=== PATIENT | male | born 1960 | race Caucasian/White ===

== ENCOUNTER → 2016-05-22 | Outpatient (REF) | payer OTHER ==
[2016-05-23 14:00] LABS: PERCENT SATURATION 24.4 % (19.7-37.4)
== END ==
LOC: M LAB REF 13:26
PROVIDERS: ATTEND Family Medicine
DX: D64.9 Anemia, unspecified (principal)

== ENCOUNTER → 2016-11-26 | Outpatient (REF) | payer OTHER | LOC: M LAB REF 09:49 | PROVIDERS: ATTEND Family Medicine | DX: C91.10 Chronic lymphocytic leukemia of B-cell type not having achieved remission (principal) ==

== ENCOUNTER → 2016-11-27 | Outpatient (REF) | payer OTHER ==
[2016-11-27 13:59] LABS: MICROSCOPIC INDICATED? MAN YES (NO); RBC, URINE NONE SEEN /hpf (0-3); WBC, URINE NONE SEEN /hpf (0-3)
[2016-11-27 14:00] LABS: BACTERIA, URINE NONE SEEN; HYALINE CAST, URINE NONE SEEN /lpf (0-1); MICROSCOPIC EXAM PERFORMED; SQUAMOUS EPITHELIAL CELL URINE NONE SEEN /hpf (SMALL AMT)
== END ==
LOC: M LAB REF 12:29
PROVIDERS: ATTEND Family Medicine
DX: N17.9 Acute kidney failure, unspecified (principal); I10 Essential (primary) hypertension

== ENCOUNTER → 2016-11-29 | Outpatient (CLI) | payer OTHER ==
--- NOTE | 2016-11-29 08:12 | REP ---
Renal ultrasound: The kidneys are normal size. Right kidney measures 11.1 x 5.6 x 4.9 cm. Left kidney measures 11.4 by 4.9 x 4.9 cm. There is no hydronephrosis on the right on the left. There are no renal calculi, masses or cyst except for a 9.6 mm left renal mid pole cortical cyst. Impression: Small left renal cyst, otherwise negative bilateral renal ultrasound. Bladder ultrasound: The bladder is not distended, containing only 97 ml fluid and cannot be further assessed by ultrasound at this time. Signed by Chirag Edward MD 11/29/2016 08:03 A
== END ==
LOC: M RAD 06:07
PROVIDERS: ATTEND Family Medicine
DX: N17.9 Acute kidney failure, unspecified (principal); N28.1 Cyst of kidney, acquired

== ENCOUNTER 2018-02-06 14:04 | Emergency (ER) | payer OTHER ==
[2018-02-06] MEDS: DERMABOND TOPICAL SKIN ADHESIVE TOP (15:58)
[2018-02-06] MEDS: ADACEL/BOOSTRIX VACCINE (DIPHTH/PERTUSS/ACELL/TETANUS)0.5ML SYR (90715) IM (16:22)
== END 2018-02-06 16:41 | disposition home or self-care (01) ==
LOC: M ED 14:04
DX: S61.211A Laceration without foreign body of left index finger without damage to nail, initial encounter (principal); W26.0XXA Contact with knife, initial encounter; Y92.89 Other specified places as the place of occurrence of the external cause; Y99.0 Civilian activity done for income or pay; I10 Essential (primary) hypertension; K21.9 Gastro-esophageal reflux disease without esophagitis; Z79.899 Other long term (current) drug therapy; Z88.1 Allergy status to other antibiotic agents; Z88.8 Allergy status to other drugs, medicaments and biological substances
CPT/HCPCS: 90715

== ENCOUNTER → 2018-05-12 | Outpatient (CLI) | payer OTHER ==
[~2018-05-12] MED LIST: ALPR2TAB3 PO; AMLO5TAB6 PO; LOSA100T50 PO; PRED10TA2 PO; PRED20TA PO; PRED50TA PO; PROTPAK PO
--- NOTE | 2018-05-13 08:26 | REP ---
Clinical: History of chronic lymphocytic leukemia for restaging. Technique: Axial noncontrast images from the thoracic inlet to the upper abdomen with coronal and sagittal re-formations. Comparison: 08/23/2014. Findings: Lung asher are relatively well aerated and demonstrate chronic age-related interstitial changes. Very subtle small scattered alveolar/ground-glass type opacities are identified involving the right lung and to a lesser extent the left base which are nonspecific in appearance. Very small associated noncalcified nodular densities measuring up to 3 mm are noted and while some of these appear relatively new as compared to 2014, their appearance is nonspecific. No focal area of consolidation. No effusion or pneumothorax. Tracheobronchial tree is patent. No obvious significant adenopathy. Lymph nodes within the mediastinum measure up to approximately 13 mm. Thoracic aorta, pulmonary vasculature and heart/pericardium appear normal. Musculoskeletal structures are intact without focal osseous abnormality. Impression: 1. Very subtle small scattered alveolar/ground-glass opacities primarily noted in the right hemithorax with few small noncalcified nodules up to 3 mm are nonspecific. No significant consolidation or mass lesion. No adenopathy. Clinical correlation is recommended and 6 - 9 month follow-up may be of value. Electronically Signed by Fred Borden MD 05/13/2018 08:18 A
--- NOTE | 2018-05-13 08:36 | REP ---
Clinical: History of chronic lymphocytic leukemia for restaging. Technique: Axial noncontrast images from the lung bases to the pubic symphysis with coronal and sagittal re-formations. Comparison: 08/23/2014. Findings: Moderately prominent intraperitoneal/mesenteric and retroperitoneal adenopathy is appreciated and there is slightly increased when compared to prior examination. Specifically, current examination demonstrates few mesenteric lymph nodes which measure up to 2.3 cm maximal diameter previously measuring up to 1.3 cm maximal diameter along with para-aortic retroperitoneal adenopathy measuring up to 2.9 cm maximal diameter which previously measured up to 1.4 cm maximal diameter. Liver, spleen, pancreas, gallbladder, bilateral adrenal glands and kidneys are relatively normal / stable for noncontrast evaluation. 1 mm nonobstructing right renal calculus identified. The enteric system is without obstruction or acute inflammatory process. Pelvis demonstrates normal bladder along with moderately prominent prostate gland. No ascites. No free air. Abdominal aorta without aneurysm. Osseous structures demonstrate age-related changes without focal osseous abnormality. Please refer to chest CT for lung base findings. Impression: Moderately prominent increased intraperitoneal and retroperitoneal adenopathy as described above when compared to prior examination of 2014. Electronically Signed by Fred Borden MD 05/13/2018 08:27 A
== END ==
LOC: M RAD 08:23
PROVIDERS: ATTEND Internal Medicine Hematology & Oncology
DX: C91.10 Chronic lymphocytic leukemia of B-cell type not having achieved remission (principal); N20.0 Calculus of kidney

== ENCOUNTER → 2018-07-06 | Outpatient (REF) | payer BC ==
[2018-07-07 08:15] LABS: LDL DIRECT 74 mg/dL (0-99)
== END ==
LOC: M LAB REF 13:07
PROVIDERS: ATTEND Family Medicine
DX: E78.5 Hyperlipidemia, unspecified (principal)

== ENCOUNTER → 2019-05-17 | Outpatient (REF) | payer BC ==
[~2019-05-17] MED LIST changes: +VALA500T5 PO
[2019-05-17 12:51] LABS: PERCENT SATURATION 30.7 % (19.7-50.0)
== END ==
LOC: M LAB REF 12:01
PROVIDERS: ATTEND Family Medicine
DX: D64.9 Anemia, unspecified (principal); D69.6 Thrombocytopenia, unspecified

== ENCOUNTER → 2019-05-31 | Outpatient (CLI) | payer BC | LOC: M LABSMTC 13:39 | PROVIDERS: ATTEND Family Medicine | DX: Z11.59 Encounter for screening for other viral diseases (principal); Z20.828 Contact with and (suspected) exposure to other viral communicable diseases ==

== ENCOUNTER → 2019-09-09 | Outpatient (CLI) | payer BC ==
[~2019-09-09] MED LIST changes: +ALLE180T33 PO; +AMLO1TAB24 PO; -AMLO5TAB6 PO; +AZEL1SPR3 NARES; +FLON1SPR NARES; +FOLI1TAB11 PO; +IMBR1CAP PO
== END ==
LOC: M LABSMTC 13:46
PROVIDERS: ATTEND Family Medicine
DX: Z11.59 Encounter for screening for other viral diseases (principal)
CPT/HCPCS: C9803; U0003

== ENCOUNTER → 2019-09-13 | Outpatient (CLI) | payer BC ==
--- NOTE | 2019-09-13 10:19 | REP ---
Clinical: Cough. Technique: PA and lateral. Comparison: 09/06/2014. Findings: Mediastinum and cardiac silhouette are normal. Lung asher demonstrate chronic-appearing interstitial changes. While no focal consolidation, effusion, or pneumothorax is appreciated, subtle right hilar adenopathy cannot be excluded and should be correlated clinically. Skeletal structures are intact. Impression: Diffuse mild chronic-appearing interstitial changes. Cannot exclude adenopathy. No focal consolidation or effusion. Electronically Signed by Fred Borden MD 09/13/2019 10:11 A
== END ==
LOC: M WUC 09:58
PROVIDERS: ATTEND Family Medicine
DX: R91.8 Other nonspecific abnormal finding of lung field (principal)

== ENCOUNTER → 2019-11-04 | Outpatient (CLI) | payer BC ==
[~2019-11-04] MED LIST changes: +GASTROGRAFIN SOLUTION 30ML (Q9963) As Ordered ONE; +ISOVUE-370 76% 100ML VIAL As Ordered ONE
--- NOTE | 2019-11-04 16:08 | REPVR ---
PROCEDURE INFORMATION: Exam: CT Neck With Contrast Exam date and time: 11/04/2019 3:41 PM Age: 59 years old Clinical indication: Condition or disease; Cancer; Other: Nhl; Mass, lump, or swelling in neck; Additional info: Non hogkins lymphoma, enlarged lymphnode on neck TECHNIQUE: Imaging protocol: Computed tomography images of the neck with intravenous contrast. Radiation optimization: All CT scans at this facility use at least one of these dose optimization techniques: automated exposure control; mA and/or kV adjustment per patient size (includes targeted exams where dose is matched to clinical indication); or iterative reconstruction. Contrast material: ISOVUE 370; Contrast volume: 100 ml; Contrast route: INTRAVENOUS (IV); COMPARISON: No relevant prior studies available. FINDINGS: Mastoid air cells: A small amount of fluid is noted in the left mastoid air cells. Nasopharynx: Unremarkable. Oropharynx: Unremarkable. No significant tonsillar enlargement. Hypopharynx: Unremarkable. Larynx: Unremarkable. Normal epiglottis. Retropharyngeal space: Unremarkable. Submandibular/Parotid glands: Normal. Glands are normal in size. Thyroid: Normal. No enlarged or calcified nodules. Lymph nodes: There is extensive cervical adenopathy. There are level 1, submandibular, lymph nodes measuring up to 13 mm in short axis on the right and 10 mm in short axis on the left. There are additional smaller level 1 lymph nodes. There are multiple bilateral jugular lymph nodes. Level 2 lymph nodes measure up to 15 mm in short axis. These are numerous lymph nodes. Level 3 jugular lymph nodes measure up to 15 mm in short axis. Level 3 jugular lymph nodes measure up to 13 mm in short axis. Posterior cervical lymph nodes measure up to 12 mm in short axis. There also intraparotid lymph nodes bilaterally measuring up to 11 mm in short axis. There are suboccipital posterior lymph nodes measuring up to 11 mm. Trachea: Visualized trachea is unremarkable. Lungs: Unremarkable as visualized. Bones/joints: There is cervical spondylosis and disc space narrowing. No focal osseous lesion. Soft tissues: On the most superior 2 images calcification is noted posteriorly within the retina or sclera. This is only partly visible. This has a wide differential diagnosis of degenerative and metabolic etiologies. This is not likely to represent lymphoma. IMPRESSION: Extensive bilateral cervical adenopathy highly consistent with the stated clinical diagnosis of lymphoma. Electronically signed by: Yung Helton On 11/04/2019 16:08:50 PM
--- NOTE | 2019-11-25 11:13 | REP ---
CONTRAST ENHANCED CT ABDOMEN AND PELVIS CLINICAL: History of non-Hodgkin's lymphoma with enlarging neck nodes. TECHNIQUE: Axial contrast enhancement images from the lung bases to the pubic symphysis with coronal and sagittal reformations using oral (per protocol) and 100 mL Isovue-370 intravenous contrast material. Coronal and sagittal reformations obtained. COMPARISON: 05/12/2018. FINDINGS: The visualized lung bases demonstrate extensive bilateral hilar and lower mediastinal adenopathy. The lung asher themselves demonstrate chronic fibrotic interstitial changes and bronchiectasis. Visualized portions of the heart and pericardium are relatively normal. The abdomen demonstrates extensive severe marked adenopathy throughout the abdomen and pelvis including large conglomerate encasing adenopathy throughout the retroperitoneum extending from approximately the level of the SMA inferiorly to the level of the distal aorta with conglomerate lymph nodes measuring roughly 14 x 7 cm transverse and AP diameter. Enlarged lymph nodes throughout the mesentery are also identified. No ascites. No free air. The liver demonstrates normal echotexture without focal lesion. The spleen is grossly unremarkable. Pancreas, gallbladder, bilateral adrenal glands are normal. The kidneys demonstrate normal enhancement with small scattered subcentimeter hypodensities consistent with cysts and no perinephric stranding or hydronephrosis. The enteric system is without obstruction or acute inflammatory process. Normal terminal ileum and appendix are identified in the right lower quadrant. Pelvis demonstrates normal bladder and age appropriate prostate/seminal vesicles. Groin and inguinal lymph nodes are also identified measuring up to 2.5 cm in diameter. Abdominal aorta without aneurysm or dissection. Musculoskeletal structures are intact. IMPRESSION: * Marked extensive diffuse mesenteric and retroperitoneal adenopathy, as well as pelvic and groin nodes. Findings are significantly increased from prior examination. * Bilateral hilar and lower mediastinal lymph nodes in the visualized lung bases along with chronic interstitial changes/fibrosis and bronchiectasis. MTDD
== END ==
LOC: M RAD 13:46
PROVIDERS: ATTEND Specialist
DX: R59.1 Generalized enlarged lymph nodes (principal); C85.10 Unspecified B-cell lymphoma, unspecified site
CPT/HCPCS: 70491; 74177; Q9963; Q9967

== ENCOUNTER → 2020-01-17 | Outpatient (REF) | payer BC ==
[~2020-01-17] MED LIST changes: -GASTROGRAFIN SOLUTION 30ML (Q9963) As Ordered ONE; -ISOVUE-370 76% 100ML VIAL As Ordered ONE
[2020-01-17 18:56] LABS: ATYPICAL LYMPH 5 % (0-5); EOSINOPHILS 1 % (0-3); LYMPHOCYTES 69 % (16-44); MONOCYTES 4 % (0-5); NEUTROPHILS 20 % (28-66)
[2020-01-17 18:57] LABS: OVALOCYTES 1+
[2020-01-17 18:58] LABS: ANISOCYTOSIS 1+; HYPOCHROMASIA 1+
[2020-01-17 19:00] LABS: PLATELET ESTIMATE NORMAL (NORMAL)
== END ==
LOC: M LAB REF 16:19
PROVIDERS: ATTEND Family Medicine
DX: C91.10 Chronic lymphocytic leukemia of B-cell type not having achieved remission (principal)

== ENCOUNTER → 2020-02-01 | Outpatient (CLI) | payer SELFPAY | LOC: M LABSMTC 12:23 | PROVIDERS: ATTEND Pediatrics | DX: Z11.59 Encounter for screening for other viral diseases (principal) ==

== ENCOUNTER → 2020-08-04 | Outpatient (CLI) | payer BC ==
[~2020-08-04] MED LIST changes: +LOSA50TA88 PO
== END ==
LOC: M LABSMTC 10:01
PROVIDERS: ATTEND Anesthesiology
DX: Z01.812 Encounter for preprocedural laboratory examination (principal); Z20.822 Contact with and (suspected) exposure to COVID-19

== ENCOUNTER → 2022-02-01 | Outpatient (REF) | payer OTHER ==
[~2022-02-01] MED LIST changes: +CALC500C16 PO; +CETI10CA13 PO; +LEVO25TA5 PO; +LOSA100T45 PO; -LOSA100T50 PO; +LOSA50TA28 PO; -LOSA50TA88 PO
[2022-02-01 14:31] LABS: HEMATOCRIT 40.1 % (42.0-52.0); HEMOGLOBIN 12.3 g/dl (13.5-17.5); MEAN CORPUSCULAR HGB CONC 30.7 g/dl (32.0-36.5); MEAN CORPUSCULAR VOLUME 68.5 fl (80.0-96.0); PLATELET COUNT, AUTOMATED 129 10^3/uL (150-450); RED BLOOD COUNT 5.85 10^6/uL (4.30-6.10); WHITE BLOOD COUNT 6.7 10^3/uL (4.0-10.0)
[2022-02-01 14:55] LABS: ALBUMIN 3.9 G/DL (3.2-5.2); ALKALINE PHOSPHATASE 67 U/L (46-116); ALT/SGPT 15 U/L (7.0-40); AST/SGOT 15 U/L (<34); BILIRUBIN,TOTAL 0.8 MG/DL (0.3-1.2); BLOOD UREA NITROGEN 19 MG/DL (9-23); CALCIUM LEVEL 8.3 MG/DL (8.3-10.6); CARBON DIOXIDE LEVEL 22 MMOL/L (20-31); CHLORIDE LEVEL 108 MMOL/L (98-107); CHOLESTEROL LEVEL 160 MG/DL (<200); CHOLESTEROL RISK RATIO 5.86 (<5); CREATININE FOR GFR 1.28 MG/DL (0.70-1.30); GLOMERULAR FILTRATION RATE > 60.0 (>49); GLUCOSE, FASTING 86 MG/DL (74-106); HDL CHOLESTEROL 27.3 MG/DL (>40); LDL CHOLESTEROL 92.1 MG/DL (<100); NON-HDL-C 133 MG/DL; POTASSIUM SERUM 4.4 MMOL/L (3.5-5.1); SODIUM LEVEL 140 MMOL/L (136-145); TOTAL PROTEIN 6.5 G/DL (5.7-8.2); TRIGLYCERIDES LEVEL 203 MG/DL (<150)
[2022-02-01 14:57] LABS: ANISOCYTOSIS 1+; ATYPICAL LYMPH 5 % (0-5); BASOPHILS 1 % (0-1); FREE T4 1.44 NG/DL (0.89-1.76); HYPOCHROMASIA 1+; LYMPHOCYTES 45 % (16-44); MONOCYTES 5 % (0-5); NEUTROPHILS 44 % (28-66); PLATELET ESTIMATE DECREASED (NORMAL); THYROID STIMULATING HORMONE 3.569 uIU/ML (0.55-4.78)
[2022-02-01 14:58] LABS: MICROCYTOSIS 1+
== END ==
LOC: M LAB REF 14:06
PROVIDERS: ATTEND Family Medicine
DX: N18.30 Chronic kidney disease, stage 3 unspecified (principal); C91.10 Chronic lymphocytic leukemia of B-cell type not having achieved remission; E07.9 Disorder of thyroid, unspecified

== ENCOUNTER → 2022-06-03 | Outpatient (CLI) | payer OTHER | LOC: M WUC 08:23 | PROVIDERS: ATTEND Family Medicine | DX: R05.3 Chronic cough (principal); J84.10 Pulmonary fibrosis, unspecified ==

== ENCOUNTER → 2022-07-04 | Outpatient (REF) | payer OTHER ==
[~2022-07-04] MED LIST changes: -LOSA100T45 PO; +LOSA100T46 PO
== END ==
LOC: M LAB REF 12:42
PROVIDERS: ATTEND Internal Medicine Critical Care Medicine
DX: R05.3 Chronic cough (principal)

== ENCOUNTER → 2022-08-21 | Outpatient (REF) | payer OTHER | LOC: M LAB REF 13:01 | PROVIDERS: ATTEND Internal Medicine Critical Care Medicine | DX: R05.3 Chronic cough (principal) ==

== ENCOUNTER → 2022-11-25 | Outpatient (REF) | payer OTHER ==
[~2022-11-25] MED LIST changes: +AZEL1SPR3; +FAMO1TAB11; +SYMB16INH
== END ==
LOC: M LAB REF 12:47
PROVIDERS: ATTEND Internal Medicine Critical Care Medicine
DX: R05.3 Chronic cough (principal)

== ENCOUNTER → 2023-01-15 | Outpatient (REF) | payer OTHER | LOC: M LABWUC 16:18 | PROVIDERS: ATTEND Student in an Organized Health Care Education/Training Program | DX: S30.861A Insect bite (nonvenomous) of abdominal wall, initial encounter (principal); X58.XXXA Exposure to other specified factors, initial encounter ==

== ENCOUNTER → 2023-12-05 | Outpatient (REF) | payer OTHER ==
[~2023-12-05] MED LIST changes: +ALBU2.5V10; +ALBU8.5H; +MAGICMW SSP; +TAMS1CAP17
== END ==
LOC: M LAB REF 15:17
PROVIDERS: ATTEND Family Medicine
DX: R19.7 Diarrhea, unspecified (principal)

== ENCOUNTER → 2023-12-10 | Outpatient (REF) | payer OTHER ==
[2023-12-10 15:52] LABS: ATYPICAL LYMPH 31 % (0-5); EOSINOPHILS 1 % (0-3); LYMPHOCYTES 36 % (16-44); METAMYELOCYTES 3 % (0-0); MONOCYTES 1 % (0-5); MYELOCYTES 1 % (0-0); NEUTROPHILS 24 % (28-66)
[2023-12-10 15:53] LABS: ANISOCYTOSIS 1+; MICROCYTOSIS 2+
[2023-12-10 15:54] LABS: POLYCHROMASIA 1+
[2023-12-10 15:55] LABS: POIKILOCYTOSIS 1+
[2023-12-10 15:56] LABS: OVALOCYTES 1+
[2023-12-10 15:57] LABS: PLATELET ESTIMATE DECREASED (NORMAL)
== END ==
LOC: M LAB REF 12:00
PROVIDERS: ATTEND Nurse Practitioner Family
DX: C91.10 Chronic lymphocytic leukemia of B-cell type not having achieved remission (principal); D56.1 Beta thalassemia; R59.9 Enlarged lymph nodes, unspecified

== ENCOUNTER 2023-12-24 07:04 | Emergency (ER) | payer OTHER ==
[~2023-12-24] VITALS: Ht 170.2 cm; Wt 81.0 kg
[2023-12-24] MEDS: LIDOCAINE 5% (LIDODERM) PATCH TD ONE (09:32)
[2023-12-24 09:40] LABS: HEMATOCRIT 29.2 % (42.0-52.0); HEMOGLOBIN 9.2 g/dl (13.5-17.5); MEAN CORPUSCULAR HEMOGLOBIN 24.3 pg (27.0-33.0); MEAN CORPUSCULAR HGB CONC 31.5 g/dl (32.0-36.5); RED BLOOD COUNT 3.79 10^6/uL (4.30-6.10)
[2023-12-24 09:44] LABS: PLATELET COUNT, AUTOMATED 80 10^3/uL (150-450)
[2023-12-24 09:46] LABS: WHITE BLOOD COUNT 31.4 10^3/uL (4.0-10.0)
[2023-12-24 10:08] LABS: ALBUMIN 3.9 G/DL (3.2-5.2); BILIRUBIN,DIRECT 0.5 MG/DL (<0.4); BILIRUBIN,TOTAL 1.2 MG/DL (0.3-1.2); CALCIUM LEVEL 9.3 MG/DL (8.3-10.6); CREATININE FOR GFR 1.41 MG/DL (0.70-1.30); GLOMERULAR FILTRATION RATE 53.7 (>49); TOTAL PROTEIN 6.4 G/DL (5.7-8.2)
[2023-12-24] MEDS ORDERED: ISOVUE-370 76% 100ML VIAL As Ordered ONE (10:28)
[2023-12-24 10:30] LABS: ATYPICAL LYMPH 27 % (0-5); EOSINOPHILS 1 % (0-3); LYMPHOCYTES 47 % (16-44); METAMYELOCYTES 1 % (0-0); MONOCYTES 1 % (0-5); MYELOCYTES 2 % (0-0); NEUTROPHILS 18 % (28-66)
[2023-12-24 10:31] LABS: PLATELET ESTIMATE DECREASED (NORMAL); SMUDGE CELLS 4+
[2023-12-24 10:32] LABS: ANISOCYTOSIS 1+; POLYCHROMASIA 1+
[2023-12-24 10:33] LABS: HYPOCHROMASIA 1+
[2023-12-24 10:35] LABS: TEAR DROP CELLS 1+
[2023-12-24 10:38] LABS: OVALOCYTES 1+; POIKILOCYTOSIS 1+
[2023-12-24 10:39] LABS: MICROCYTOSIS 1+
[2023-12-24] MEDS: diazePAM 5MG TABLET PO ONE (10:59)
[2023-12-24] MEDS: ACETAMINOPHEN *IV* 1,000 MG in IV 1 EA IV ONE (11:00)
[2023-12-24] MEDS: MORPHINE 2 MG/ML 1ML VIAL IV ONE (13:08)
[2023-12-24] MEDS ORDERED: HYDR-4571 PO (13:48)
[2023-12-24 14:10] VITALS: BP 129/64; TEMP 97.7; O2SAT 97
[2023-12-30] MEDS ORDERED: LOPE1LIQ18 PO (08:42)
[2023-12-30] MEDS ORDERED: TIZA4CAP (08:42)
[2023-12-30] MEDS ORDERED: BACT800T5 PO (09:54)
[2023-12-30] MEDS ORDERED: ALLO100T PO (09:54)
[2023-12-30] MEDS ORDERED: ZANU80CA PO (13:07)
== END 2023-12-24 14:16 | disposition home or self-care (01) ==
LOC: M ED 07:04
DX: R19.7 Diarrhea, unspecified (principal); C91.10 Chronic lymphocytic leukemia of B-cell type not having achieved remission; J44.9 Chronic obstructive pulmonary disease, unspecified; E03.9 Hypothyroidism, unspecified; G47.30 Sleep apnea, unspecified; Z88.1 Allergy status to other antibiotic agents; Z88.8 Allergy status to other drugs, medicaments and biological substances; R19.8 Other specified symptoms and signs involving the digestive system and abdomen; R16.1 Splenomegaly, not elsewhere classified; N20.0 Calculus of kidney; Z79.899 Other long term (current) drug therapy
CPT/HCPCS: 71250; 74177; 80048; 80076; 83690; 85025; 85049; 85055; 87486; 87581; 87633; 87798; 96365; 96366; 96375; 99284; J0131; Q9967

== ENCOUNTER → 2024-01-13 | Outpatient (CLI) | payer OTHER ==
[~2024-01-13] VITALS: Ht 170.2 cm; Wt 78.0 kg
[~2024-01-13] MED LIST changes: +ACAL100T PO; +ALLO100T PO; +BACT800T5 PO; +HYDR-4571 PO; +LIDOCAINE 1% MDV 20ML VIAL As Ordered ONE; +LIDOCAINE W/EPINEPHRINE 1% 20ML VIAL As Ordered ONE; +LOPE1LIQ18 PO; +MIDAZOLAM INJ 2MG/2ML VIAL As Ordered ONE; +TIZA4CAP; +ZANU80CA PO; +fentaNYL 100 MCG/2 ML INJECTION As Ordered ONE
[2024-01-13 12:50] VITALS: TEMP 99.3
[2024-01-13] MEDS: VANCOMYCIN/WATER FOR INJ 1,000 MG in IV 1 EA IV ONE (14:10)
[2024-01-13 15:35] VITALS: BP 124/68; O2SAT 95
== END ==
LOC: M IRPRO 12:33
PROVIDERS: ATTEND Specialist
DX: C91.10 Chronic lymphocytic leukemia of B-cell type not having achieved remission (principal)
CPT/HCPCS: 36561; 99152; 99153; J1642; J2250; J3010; J3372

== ENCOUNTER → 2024-05-11 | Outpatient (CLI) | payer OTHER ==
[~2024-05-11] MED LIST changes: +CEPH500C PO; +CIPR-249 PO; +FOLI1TAB11; -LIDOCAINE 1% MDV 20ML VIAL As Ordered ONE; +LIDOCAINE 1% MDV 20ML VIAL SC ONE; -LIDOCAINE W/EPINEPHRINE 1% 20ML VIAL As Ordered ONE; +LOMO2.5T PO; +MEDR4PAK PO; -MIDAZOLAM INJ 2MG/2ML VIAL As Ordered ONE; +MUPI2OI; +OMEP-173 PO; +PRED10TA2; +PRED20TA; +THERTAB52 PO; -fentaNYL 100 MCG/2 ML INJECTION As Ordered ONE
[2024-05-11 12:35] VITALS: TEMP 96.9
[2024-05-11 13:10] VITALS: BP 166/85; O2SAT 100
== END ==
LOC: M IRPRO 12:22
PROVIDERS: ATTEND Specialist
DX: C91.10 Chronic lymphocytic leukemia of B-cell type not having achieved remission (principal)

== ENCOUNTER → 2025-01-13 | Outpatient (CLI) | payer OTHER ==
[~2025-01-13] MED LIST changes: +ACYC-438; +ACYC-438 PO; +ALLO100T; +AMLO1TAB24; +ATIV1TAB10 PO; +BACL10TA2 PO; +FLUC-1; +FLUC-1 PO; +FURO20TA2 PO; +HYDR-3716 PO; +LASI20TA3 PO; +LEVO1TAB39; +LEVO1TAB39 PO; +LEVO75TA4; -LIDOCAINE 1% MDV 20ML VIAL SC ONE; +MORP1SOL4 PO; +MORP20SO PO; +ONDA-282 PO; +OXYC-517 PO; +PANT40TA29; +PANT40TA29 PO; +POTA-151 PO; -PRED50TA PO; +PRED50TA57 PO; +SENN-186 PO; +TRAM50TA2 PO; +VENC100T; +VENC100T PO
== END ==
LOC: M RAD 07:36
PROVIDERS: ATTEND Specialist
DX: C91.10 Chronic lymphocytic leukemia of B-cell type not having achieved remission (principal)